=== PATIENT | male | born 1980 | race Caucasian/White ===

== ENCOUNTER 2019-06-01 08:47 | Emergency (ER) | payer OTHER ==
[2019-06-01 09:07] VITALS: BP 137/85; PULSE 76; O2SAT 99
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
[2019-06-01] MEDS ORDERED: OXYCODONE-ACETAMINOPHEN 10-325 PO STA (09:57)
[2019-06-01] MEDS ORDERED: OXYCODONE-ACETAMINOPHEN 10-325 ONE (10:06)
== END 2019-06-01 10:30 | disposition short-term general hospital (02) ==
LOC: ED 08:47
DX: S63.293A Dislocation of distal interphalangeal joint of left middle finger, initial encounter (principal); Y04.0XXA Assault by unarmed brawl or fight, initial encounter
CPT/HCPCS: 73140; 99284; A9270-GY

== ENCOUNTER 2020-05-09 21:34 | Emergency (ER) | payer OTHER ==
[2020-05-09 21:45] VITALS: O2SAT 99
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
[2020-05-09 22:09] VITALS: BP 153/99; PULSE 88
== END 2020-05-09 22:00 | disposition home or self-care (01) ==
LOC: ED 21:34
DX: Z02.89 Encounter for other administrative examinations (principal); F15.90 Other stimulant use, unspecified, uncomplicated
CPT/HCPCS: 99283